=== PATIENT | female | born 1945 | race Caucasian/White ===

== ENCOUNTER 2018-09-16 08:05 | Inpatient (IN) ==
--- NOTE | 2018-09-02 10:11 | History & Physical Report ---
Date of Service September 02, 2018 date of surgery: 09-16-18 Assessment & Plan (1) Tricompartment osteoarthritis of right knee: Further care discussed with [facility] and at this point in time has failed conservative measures and would like to proceed with a right total knee replacement at [facility] on 09-16-18. Plan on discharge will be home with home health physical therapy. DVT prophalaxis with TEDs, SCDs and will also place on aspirin 81 mg p.o. b.i.d. for a month postop. Patient will have follow up appointment in our office two weeks post op for staple/suture removal and re-evaluation. Patient otherwise has no other questions or concerns. History of Present Illness Chief Complaint: right knee pain Primary Care Provider: Chon Haas Ms Huggins is a 72 year old female who complains of right knee pain, presents for pre-op evaluation prior to a right total knee replacement at [facility]. She presents with pain, crepitus and decreased range of motion in her right knee. She states that the symptoms have been chronic and they occur constantly with intermittent worsening. Currently the patient states that the symptoms are moderate-severe. The pain is described as aching, sharp and throbbing. The symptoms are aggravated by ascending stairs, daily activities, walking and repetitive activities. In addition to right knee pain the patient is also exp eriencing crepitus, decreased mobility, joint pain, limping, loss of motion, pain, pain after activity and stiffness. Prior NSAIDs include ibuprofen and Aleve. She has had previous corticosteroid injection in the past. She has had Pt. and ambulates with a cane. She has a previous Left TKA done several years ago. Allergies Allergy/AdvReac Type Severity Reaction Status Date / Time No Known Allergies Allergy Verified 08/31/18 14:30 Home Medications Home Medications Medication Instructions Recorded Confirmed Type Ca-D3-mag sd-dbry-fqr-tricia-bor 1 tab PO QAM 08/31/18 08/31/18 History [Calcium 600-D3 Plus] acetaminophen [Acetaminophen Extra 500 mg PO BID 08/31/18 08/31/18 History Strength] aspirin 650 mg PO QID PRN 08/31/18 08/31/18 History aspirin [Aspirin Low Dose] 81 mg PO QPM 08/31/18 08/31/18 History atenolol 25 mg PO QAM 08/31/18 08/31/18 History atorvastatin 20 mg PO PM 08/31/18 08/31/18 History cholecalciferol (vitamin D3) 2,000 unit PO QAM 08/31/18 08/31/18 History [Vitamin D3] docusate sodium 100 mg PO BID 08/31/18 08/31/18 History famotidine 40 mg PO HS 08/31/18 08/31/18 History gabapentin 300 mg PO QAM 08/31/18 08/31/18 History gabapentin 600 mg PO QPM 08/31/18 08/31/18 History insulin degludec [Tresiba 12 unit SUBCUT HS 08/31/18 08/31/18 History FlexTouch U-100] liraglutide [Victoza 2-Skinny] 1.6 mg SUBCUT HS 08/31/18 08/31/18 History magnesium oxide 400 mg PO QAM 08/31/18 08/31/18 History metformin 1,000 mg PO QDD 08/31/18 08/31/18 History mometasone [Nasonex] 2 spray INTRANASAL DAILY PRN 08/31/18 08/31/18 History fw-yv-nicj-FA-Ca carb-vit K 1 tab PO QAM 08/31/18 08/31/18 History [Women's Multivitamin] adubd-6-chh-poj-rbz-jwxl oil 2 cap PO QAM 08/31/18 08/31/18 History solifenacin [Vesicare] 10 mg PO QAM 08/31/18 08/31/18 History vitamin E 400 unit PO QAM 08/31/18 08/31/18 History Past Med/Surg History Medical History Asthma Using albuterol BID, nebulizer BID, Breo daily Diabetes mellitus, type 2 GERD (gastroesophageal reflux disease) Hiatal hernia History of anemia as a child History of kidney stones Hyperlipidemia Hypertension Morbid obesity Osteoarthritis Seasonal allergies Urinary incontinence Surgical History History of colonoscopy History of total left knee replacement Family History Brother Family history of diabetes mellitus Sister Family history of diabetes mellitus Mother Family history of diabetes mellitus Uncle Family history of diabetes mellitus Uncle Family history of diabetes mellitus Family/Other Family history of diabetes mellitus Social History Preferred Language: Uzbek Communication Ability: Effective Beliefs That Will Affect Care: None Current Living Situation: Family Feels Safe at Home: Yes Smoking Status: Former smoker Do You Dip or Chew Tobacco: No Smoking End Date: 40 YR AGO Second Hand Exposure: Yes (OCCASSIONALLY) Hx Alcohol Use: No Hx Substance Use: No Review of Systems Review of Systems: All systems reviewed & are unremarkable except as noted in HPI & below Constitutional: no fever, no chills and no sweats Respiratory: no cough and no dyspnea Cardiovascular: no chest pain, no dyspnea and no orthopnea Gastrointestinal: no abdominal pain, no nausea and no vomiting Musculoskeletal: as per Subjective / HPI Physical Exam Physical Exam: Ht: 5ft Wt: 92.99 kg BP: 138/78 Pulse: 78 Constitutional: WD/WN, vitals as above no acute distress Respiratory: normal respiratory effort, lungs clear to auscultation no respiratory distress, no labored breathing and does not use accessory muscles Cardiovascular: RRR, no murmur, no edema Gastrointestinal (Abdomen): normal bowel sounds, soft, nontender, no hepatosplenomegaly Musculoskeletal: Right Knee Exam: she ambulates with a limp. Varus alignement. there is no atrophy or warmth, mild effusion, greatest tenderness over the m edial compartment. there is crepitation with motion, madan's negative, Posterior drawer- negative, anterior drawer negative, valgus stress negative, varus stress negative, no extensor lag, there is pain with motion of the knee. Range of motion 0/5/110. No pain with active/passive ROM of ankle. Lower extremity strength normal. Lower extremity neuro-vascular is normal Results & Data Diagnostic Findings Right Knee X-ray from 05/04/18 shows advanced degenerative changes to the right knee, narrowing of the medial compartment and patello-femoral joint, varus alignment. there is patellar spurring noted, osteophyte formation and subchondral sclerosis noted. no acute bony pathology noted. no loose bodies.
--- NOTE | 2018-09-02 14:05 | PAT Medication Instructions ---
Medication Instructions Date of Service September 02, 2018 Home Medications Ca-D3-mag qu-lybh-oto-tricia-bor [Calcium 600-D3 Plus] 1 tab PO QAM acetaminophen [Acetaminophen Extra Strength] 500 mg PO BID aspirin [Aspirin Low Dose] 81 mg PO QPM atenolol 25 mg PO QAM atorvastatin 20 mg PO PM cholecalciferol (vitamin D3) 2,000 unit PO QAM docusate sodium 100 mg PO BID famotidine 40 mg PO HS gabapentin 300 mg PO QAM gabapentin 600 mg PO QPM insulin degludec [Tresiba FlexTouch U-100] 12 unit SUBCUT HS liraglutide [Victoza 2-Skinny] 1.6 mg SUBCUT HS magnesium oxide 400 mg PO QAM metformin 1,000 mg PO QDD mometasone [Nasonex] 2 spray INTRANASAL DAILY PRN zi-ng-karx-FA-Ca carb-vit K [Women's Multivitamin] 1 tab PO QAM aqhqc-3-bcw-has-qne-blel oil 2 cap PO QAM solifenacin [Vesicare] 10 mg PO QAM vitamin E 400 unit PO QAM STOP taking 2 weeks before surgery qnumj-7-uww-fin-wzu-jpzy oil 2 cap PO QAM vitamin E 400 unit PO QAM DO NOT take the morning of surgery Ca-D3-mag td-wzbc-sad-tricia-bor [Calcium 600-D3 Plus] 1 tab PO QAM cholecalciferol (vitamin D3) 2,000 unit PO QAM docusate sodium 100 mg PO BID magnesium oxide 400 mg PO QAM ml-ft-rmzz-FA-Ca carb-vit K [Women's Multivitamin] 1 tab PO QAM solifenacin [Vesicare] 10 mg PO QAM Take morning of surgery With a small sip of water, OTHERWISE NOTHING TO EAT OR DRINK AFTER MIDNIGHT: albuterol inhaler QID PRN (if needed, and bring with you to the hospital) acetaminophen [Acetaminophen Extra Strength] 500 mg PO BID atenolol 25 mg PO QAM Breo Inhaler 1 inh QAM gabapentin 300 mg PO QAM mometasone [Nasonex] 2 spray INTRANASAL DAILY PRN (if needed) Take evening before surgery acetaminophen [Acetaminophen Extra Strength] 500 mg PO BID aspirin [Aspirin Low Dose] 81 mg PO QPM atorvastatin 20 mg PO PM docusate sodium 100 mg PO BID famotidine 40 mg PO HS gabapentin 600 mg PO QPM insulin degludec [Tresiba FlexTouch U-100] 12 unit SUBCUT HS liraglutide [Victoza 2-Skinny] 1.6 mg SUBCUT HS metformin 1,000 mg PO QDD mometasone [Nasonex] 2 spray INTRANASAL DAILY PRN (if needed) Other Notes If you have any questions please call us at [phone] or [phone] or [phone] or [phone]
--- NOTE | 2018-09-02 14:24 | Anesthesiology Consultation ---
Date of Service September 02, 2018 Assessment & Plan (1) Encounter for pre-operative examination: PCP CLEARANCE 09/09 ([facility] [place]) -- "patient is medically cleared for scheduled right TKA with Dr. Inman on 09/16/2018 at [facility]. Her multiple comorbid medical issues are well controlled at this time." CHECK BSG AM DOS Chart Review Chart Review: Acceptable Risk for Surgery and Patient seen in Pre Admission Testing Teaching & Discussion Instructed NPO after midnight before surgery, except medications with 15 cc of water. Medication instructions provided according to the PAT guidelines. History Surgery Operation Date: 05/27/18 08:20 Proposed Procedures p Right Total Knee Arthroplasty - Jayy Inman DO Operation Date: 09/16/18 12:15 Proposed Procedures p Right Total Knee Arthroplasty - Jayy Inman DO Height/Weight Height: 5 ft Weight: 96.2 kg Allergies Allergy/AdvReac Type Severity Reaction Status Date / Time No Known Allergies Allergy Verified 08/31/18 14:30 Medications Home Medications Medication Instructions Recorded Confirmed Last Taken Ca-D3-mag xq-gubi-vys-tricia-bor 1 tab PO QAM 08/31/18 08/31/18 Unknown [Calcium 600-D3 Plus] acetaminophen [Acetaminophen Extra 500 mg PO BID 08/31/18 08/31/18 Unknown Strength] aspirin [Aspirin Low Dose] 81 mg PO QPM 08/31/18 08/31/18 Unknown atenolol 25 mg PO QAM 08/31/18 08/31/18 Unknown atorvastatin 20 mg PO PM 08/31/18 08/31/18 Unknown cholecalciferol (vitamin D3) 2,000 unit PO QAM 08/31/18 08/31/18 Unknown [Vitamin D3] docusate sodium 100 mg PO BID 08/31/18 08/31/18 Unknown famotidine 40 mg PO HS 08/31/18 08/31/18 Unknown gabapentin 300 mg PO QAM 08/31/18 08/31/18 Unknown gabapentin 600 mg PO QPM 08/31/18 08/31/18 Unknown insulin degludec [Tresiba 12 unit SUBCUT HS 08/31/18 08/31/18 Unknown FlexTouch U-100] liraglutide [Victoza 2-Skinny] 1.6 mg SUBCUT HS 08/31/18 08/31/18 Unknown magnesium oxide 400 mg PO QAM 08/31/18 08/31/18 Unknown metformin 1,000 mg PO QDD 08/31/18 08/31/18 Unknown mometasone [Nasonex] 2 spray INTRANASAL DAILY PRN 08/31/18 08/31/18 Unknown up-vu-soqr-FA-Ca carb-vit K 1 tab PO QAM 08/31/18 08/31/18 Unknown [Women's Multivitamin] kauil-0-ihj-lvq-iqy-vakm oil 2 cap PO QAM 08/31/18 08/31/18 Unknown solifenacin [Vesicare] 10 mg PO QAM 08/31/18 08/31/18 Unknown vitamin E 400 unit PO QAM 08/31/18 08/31/18 Unknown albuterol sulfate 2 puff INHALATION Q6H PRN 09/03/18 09/03/18 Unknown albuterol sulfate 2.5 mg INHALATION QID PRN 09/03/18 09/03/18 Unknown fluticasone furoate-vilanterol 1 inh INHALATION DAILY 09/03/18 09/03/18 Unknown [Breo Ellipta] Past Medical History Medical History Asthma Using albuterol BID, nebulizer BID, Breo daily Diabetes mellitus, type 2 GERD (gastroesophageal reflux disease) Hiatal hernia History of anemia as a child History of kidney stones Hyperlipidemia Hypertension Morbid obesity Osteoarthritis Seasonal allergies Urinary incontinence Exercise / Class Metabolic Activity II 4-5 Yardwork/Stairs/Walk up hill (Does full flight of stairs daily without CP or SOB unless hurrying) Past Family History Family History Brother Family history of diabetes mellitus Sister Family history of diabetes mellitus Mother Family history of diabetes mellitus Uncle Family history of diabetes mellitus Uncle Family history of diabetes mellitus Family/Other Family history of diabetes mellitus Past Surgical History Surgical History History of colonoscopy History of total left knee replacement Past Anesthesia History No Family Hx of Anesthesia Complications and Other Pt reports "low BP" with anesthesia. Denies reintubation or ICU transfer. H/O awareness with previous L TKA. History of PONV No Hx of PONV and Hx of Motion Sickness Social History Smoking Status: Former smoker Do You Dip or Chew Tobacco: No Smoking End Date: 40 YR AGO Hx Alcohol Use: No Hx Substance Use: No Review of Systems Pt denies any recent chest pain, shortness of breath above baseline, palpitations, cough, fever or URI. Physical Exam Vital Signs BP: 93/63 (denies hypotensive symptoms, reports BPs have been low since PCP made adjustments to DMD meds. To see PCP 09/09) P: 78bpm SPO2: 92% * (pt asymptomatic) T: 97.7 F R: 18 Constitutional + obese ENMT Mouth: + dental restorations (upper plate) and + edentulous Thyromental Distance: > or= 3.5 Finger Breadths (3.5) Mallampati Class: I Neck normal visual inspection; neck extension not limited (very mild pain with full extension) Respiratory normal respiratory effort Auscultation: lungs clear to auscultation bilaterally and + diminished lung sounds (B/L) Cardiovascular Rate/Rhythm: regular rate and regular rhythm Heart Sounds: no murmur Vessels: no carotid bruit Extremities: + edema (trace B/L) Testing Laboratory Results 09/02/18 14:40 09/02/18 14:40 PT 10.9 Seconds (9.0-12.0) 09/02/18 14:40 INR 1.1 (0.9-1.1) 09/02/18 14:40 APTT 25.6 Seconds (21.0-31.0) 09/02/18 14:40 Hemoglobin A1c 6.6 % (4.5-5.6) H 09/02/18 14:40 Urine Color Yellow 09/02/18 14:40 Urine Appearance Cloudy (Clear) A 09/02/18 14:40 Urine pH 5.0 (4.5-7.5) 09/02/18 14:40 Ur Specific Gilbert 1.024 (1.000-1.030) 09/02/18 14:40 Urine Protein Negative (Negative) 09/02/18 14:40 Urine Glucose (UA) Negative (Negative) 09/02/18 14:40 Urine Ketones Negative (Negative) 09/02/18 14:40 Urine Nitrite Negative (Negative) 09/02/18 14:40 Ur Leukocyte Esterase Trace (Negative) H 09/02/18 14:40 Urine WBC (Auto) 1-5 /hpf (0-5) 09/02/18 14:40 Urine RBC (Auto) 0-4 /hpf (0-4) 09/02/18 14:40 U Hyaline Cast (Auto) 1-5 /lpf (0-5) 09/02/18 14:40 U Epithel Cells (Auto) >30 /lpf (0-5) H 09/02/18 14:40 Urine Bacteria (Auto) 1+ (Negative) H 09/02/18 14:40 Blood Type O Positive 09/02/18 14:40 Antibody Screen NEGATIVE 09/02/18 14:40 09/02/18 14:40 Urine Culture - Final Urine,Clean Catch More than three types of organisms present, all high counts mixed probable skin law - No further identifications or sensitivities to follow. Electrocardiogram Date: 09/02/18 Findings: + KATHYR @ (51)
[2018-09-02 16:09] LABS: Basophils # (auto) 0.12 K/uL (0-0.2); Basophils % (auto) 1.4 %; Hematocrit (blood only) 39.7 % (37-47); Hemoglobin 13.5 g/dL (12.0-16.0); Immature Granulocytes # (auto) 0.01 K/uL (0.00-0.02); Immature Granulocytes % (auto) 0.1 %; Lymphocytes # (auto) 2.91 K/uL (1.2-3.4); Lymphocytes % (auto) 34.6 %; Mean Corpuscular Volume 96.1 fL (80-100); Mean Platelet Volume 11.1 fL (7.4-10.4); Monocytes # (auto) 0.51 K/uL (0.11-0.59); Monocytes % (auto) 6.1 %; Neutrophils # (auto) 4.35 K/uL (1.4-6.5); Neutrophils % (auto) 51.8 %; Platelet Count 274 K/uL (130-400); RDW Coefficient of Variation 13.3 % (11.5-14.5); RDW Standard Deviation 46.4 fL (36.4-46.3); Red Blood Count 4.13 M/uL (4.2-5.4)
[2018-09-02 16:16] LABS: Appearance Urine Cloudy (Clear); Bacteria Urine Automated 1+ (Negative); Bilirubin Urine Negative (Negative); Blood Urine Negative (Negative); Color Urine Yellow; Epithelial Cell Urine Auto >30 /lpf (0-5); Glucose Urine UA Negative (Negative); Ketones Urine Negative (Negative); Leukocyte Esterase Urine Trace (Negative); Nitrite Urine Negative (Negative); Protein Urine Negative (Negative); RBC Urine Automated 0-4 /hpf (0-4); Specific Gravity Urine 1.024 (1.000-1.030); Urobilinogen Urine Negative (Negative)
[2018-09-02 16:18] LABS: Albumin Level 3.6 gm/dl (3.4-5.0); BUN Creatinine Ratio 16.2 (10-20); Calcium 9.2 mg/dl (8.5-10.1); Creatinine Clr Calc Pharmacy 50.3 ml/min; Est GFR (African American) 60.2; Potassium 4.3 mmol/L (3.5-5.1)
[2018-09-02 16:20] LABS: INR 1.1 (0.9-1.1); Partial Thromboplastin Ratio 0.9; Partial Thromboplastin Time 25.6 Seconds (21.0-31.0); Prothrombin Time 10.9 Seconds (9.0-12.0)
[2018-09-03 09:59] LABS: Estimated Average Glucose 143 mg/dl; Hemoglobin A1C 6.6 % (4.5-5.6)
[~2018-09-16 08:05] MED LIST: ACETAMINOPHEN 500 MG TAB PO SCH; BUPIVACAINE 0.5 % 5 MG/1 ML PF 10ML VIAL ONE; CEFAZOLIN 2000MG 2,000 MG/15 ML SYR IV SCH; CeleBREX 200 MG CAP PO SCH; EPINEPHrine INJ 1 MG/ML AMP ONE; FAMOTIDINE 20 MG TAB PO SCH; GABAPENTIN 300 MG CAP PO SCH; LR 500ML BOLUS, THEN 15ML/HR IV SCH; METOCLOPRAMIDE HCL 10 MG TABLET PO SCH; ROPIVACAINE 0.5% 5 MG/ML 30 ML VIAL ONE; ROPIVACAINE 0.5% HCL/PF 150 MG, BUPIVACAINE 0.5% MPF 30 ML, EPINEPHrine 30MG/30ML (OR U... INSTIL SCH; TRANEXAMIC ACID 1,000 MG **IV Intra-op IV SCH; TRANEXAMIC ACID 1,000 MG **IV Pre-op IV SCH; dexAMETHasone 4 MG TAB PO SCH
[2018-09-16] MEDS ORDERED: fentaNYL citrate 100 MCG/2 ML VIAL ONE (09:32)
[2018-09-16] MEDS ORDERED: LIDOCAINE HCL 2% 2 ML VIAL/AMP(20MG/ML) INFIL ONE (09:32)
[2018-09-16] MEDS ORDERED: PROPOFOL IV EMULSION 10 MG/ML 20 ML VIAL IV ONE ×2 (09:32→11:15)
[2018-09-16] MEDS ORDERED: MIDAZOLAM HCL 1 MG/ML 2ML VIAL ONE (09:32)
[2018-09-16] MEDS ORDERED: ORTHO JOINT ANESTHETIC ONE (10:11)
[2018-09-16] MEDS ORDERED: BACITRACIN INJ 50,000 UNIT VIAL ONE (10:11)
[2018-09-16] MEDS ORDERED: LABETALOL HCL IV 5 MG/ML 20ML IV PRN (10:21)
[2018-09-16] MEDS ORDERED: ONDANSETRON INJ 2 MG/ML 2 ML VIAL IV PRN ×2 (10:21→13:42)
[2018-09-16] MEDS ORDERED: ATROPINE SULFATE 0.1 MG/ML 10ML SYR IV PRN (10:21)
[2018-09-16] MEDS ORDERED: HYDROmorphone INJ 1 MG/ML SYRINGE IV PRN (10:21)
[2018-09-16] MEDS ORDERED: ePHEDrine sulfate 50 MG/ML AMP IV PRN (10:21)
[2018-09-16] MEDS ORDERED: PHENYLEPHRINE 100MCG/ML 5ML SYR IV PRN (10:21)
[2018-09-16] MEDS ORDERED: fentaNYL citrate 100 MCG/2 ML VIAL IV PRN (10:21)
--- NOTE | 2018-09-16 10:27 | History & Physical Bridge Note ---
Date of Service September 16, 2018 History & Physical Bridge Note I have examined the patient, reviewed the History & Physical and in the interval since the performance of the History & Physical I have noted the following changes of clinical significance: no changes noted
[2018-09-16] MEDS ORDERED: PHENYLEPHRINE 100MCG/ML 5ML SYR ONE (11:15)
--- NOTE | 2018-09-16 11:38 | Operative Report ---
Post Operative Report Pre & Post Diagnosis Operation Date: 05/27/18 08:20 <No data on this case meets the specified criteria> Operation Date: 09/16/18 11:00 Pre-Op Diagnosis: Right knee osteoarthritis Post-Op Diagnosis: Right knee osteoarthritis Procedure Operation Date: 05/27/18 08:20 <No data on this case meets the specified criteria> Operation Date: 09/16/18 11:00 Actual Procedures p Right Total Knee Arthroplasty(Right) utilizing [employer] Nephew journey to non- block total knee arthroplasty size 3 femur to tibia 9 polyethylene 29 round patella- Jayy Inman DO Surgeon Jayy Inman DO Wort Extractor Kareem GROSS Estimated Blood Loss 5 Findings Consistent with Post-Op Diagnosis Patient presents with severe end-stage tricompartmental degenerative joint di sease right knee bone to bone changes subchondral eburnated bone with subchondral cystic changes marginal osteophytes varus alignment moderate to large effusion no response to conservative manage Specimens Bone and cartilage Drains Medium bore Hemovac Complications none Disposition Accompanied Patient To Recovery: No Disposition: Recovery Room Indications Patient presents with ongoing planes of pain about the right knee no response to conservative management with physical therapy anti-inflammatories relative rest activity modification cortical steroid injections Visco supplementation patient is failed all attempts at conservative management the above intraoperative findings were noted times surgery. Description of Procedure After proper prepping and draping of the Right lower extremity anterior midline incision was made over the region of the extensor extensor mechanism after meticulous hemostasis was obtained and maintained in subcutaneous tissues a medial parapatellar incision was made The patella was subluxed lateralward the medial lateral gutter were cleaned from any hypertrophic synovitis and scar tissue of the distal femoral block was placed and the distal femoral osteotomy cut was made subsequently the chamfers anterior and posterior osteotomy cuts were made utilizing the 4-in-1 block the tibia was subsequently subluxed anteriorward medial and ateral meniscal remnants were excised in their entirety remnants of the anterior and posterior cruciate ligaments were excised in their entirety excellent exposure of the proximal tibia was obtained the tibial osteotomy guide was placed on the proximal tibial osteotomy cut was made once again the knee was irrigated with copious amounts of sterile saline solution the patella was subsequently everted lateralward thickened scar tissue around the patella was removed the patella was subsequently cut utilizing a freehand technique and was drilled prepared for final preparation and placement of patella socially flexion-extension gaps were checked and the equal and symmetric trials were placed to the appropriate femoral and tibial trials with poly-spacer being placed for equal flexion and extension gaps and full range of motion including extension to 0 and flexion to 140 the trial components after having been taken to recovery range of motion was subsequently removed meticulous hemostasis was obtained and maintained subsequently a knee block injection of joint cocktail including ropivacaine 0.5% 150 mg. Bupivacaine 0.5% epinephrine 1-200,030 mL's toradol 30 mg dexamethasone 4 mg ketamine 10 mg clonidine 100 micrograms normal saline solution 30 mg was infiltrated into the soft tissues of the posterior knee medial lateral gutters and periosteal synovium special attention was paid to protect neurovascular structures at all times subsequently trial components having been removed the knee was irrigated with sterile saline solution. debris was removed the proximal tibia was subsequently prepared and was made ready for the placement of the tibial component tibial component was also cemented and tamped into position the femoral component was subsequently placed and cemented in the position the patellar component was subsequently cemented in position because hemostasis once again obtained and maintained wound having been thoroughly irrigated with debridement and debridement lavage was performed as well as a medial parapatellar incision closed with #1 Vicryl in interrupted fashion subcutaneous was closed with #2 Vicryl skin was closed with skin clips. PA-C was necessary for prepping and drapping as well as wound closure of deep fascia Sub cutaneous tissue and skin and was necessary for the case. A sterile compressive dressing was placed patient was taken to recovery in stable condition of report dictated by Storm I attest to the content of the Intraoperative Record and any orders documented therein. Any exceptions are noted below. I attest to the content of the Intraoperative Record and any orders documented therein. Any exceptions are noted below.
--- NOTE | 2018-09-16 12:55 | XRay Report ---
XR knee RT 2V routine CLINICAL HISTORY: 72 years-old Female presenting with Surgical Post Op. TECHNIQUE: Frontal and lateral views of the right knee were obtained. COMPARISON: None. FINDINGS: Post surgical changes of total right knee arthroplasty with patellar resurfacing. No periprosthetic f racture or lucency. No malalignment. Surgical drain in place. Expected intra-articular and soft tissu e emphysema. IMPRESSION: Expected post surgical appearance status post total right knee arthroplasty with patellar resurfacing . Electronically signed by: Jarod Toscano M.D. 09/16/2018 12:54 PM
--- NOTE | 2018-09-16 13:13 | Anesthesiology Progress Note ---
Date of Service September 16, 2018 Anesthesia Post Procedure Vital Signs Vital Signs: Temp Pulse Pulse Resp BP Pulse Ox 09/16/18 13:00 37.1 C 78 15 104/62 94 09/16/18 12:50 81 12 109/65 92 09/16/18 12:40 81 12 106/63 93 09/16/18 12:30 82 12 124/65 96 09/16/18 12:21 36.8 C 68 20 153/75 H 97 09/16/18 08:48 74 18 146/88 H 97 09/16/18 08:40 36.8 C 75 18 131/110 H 98 Pain Intensity Right Knee: Pain Intensity: 0 Transfer of Care Handoff Completed per policy Notes Mental Status: alert / awake / arousable Patient Amnestic to Procedure: Yes Nausea / Vomiting: adequately controlled Pain: adequately controlled Airway Patency, RR, SpO2: stable & adequate BP & HR: stable & adequate Hydration State: stable & adequate Neuraxial Anesthesia: was administered and sensory block is resolving Anesthetic Complications: no major complications apparent and Pt Satisfied with anesthetic care
[2018-09-16] MEDS ORDERED: ALBUTEROL HFA 8 GM INHALER INH PRN (13:42)
[2018-09-16] MEDS ORDERED: ALBUTEROL 0.083% NEBU SOLN 3 ML VIAL INH PRN (13:42)
[2018-09-16] MEDS ORDERED: MAGNESIUM HYDROXIDE SUSP 30 ML UDC PO PRN (13:42)
[2018-09-16] MEDS ORDERED: NALOXONE HCL 0.4 MG/1 ML VIAL/CARP IV PRN (13:42)
[2018-09-16] MEDS ORDERED: BISACODYL 10 MG SUPP PR PRN (13:42)
[2018-09-16] MEDS ORDERED: HYDROmorphone INJ 0.5 MG/0.5 ML SYR IV PRN (13:42)
[2018-09-16] MEDS ORDERED: ALUMINUM/MAGNESIUM SUSP 30 ML UDC PO PRN (13:42)
[2018-09-16] MEDS ORDERED: PHARMACY GLYCEMIC MGMT CONSULT PRN (13:58)
[2018-09-16] MEDS ORDERED: GLUCAGON FOR INJ 1 MG VIAL IM PRN (14:00)
[2018-09-16] MEDS ORDERED: GLUCOSE 10 TABS/TUBE PO PRN (14:00)
[2018-09-16] MEDS ORDERED: CARBOHYDRATES FOR HYPOGLYCEMIA PO PRN (14:00)
[2018-09-16] MEDS ORDERED: GLUCOSE 40% GEL 15 GM TUBE PO PRN (14:00)
[2018-09-16] MEDS ORDERED: DEXTROSE 50% 50 ML SYRINGE IV PRN (14:00)
[2018-09-16] MEDS ORDERED: INSULIN GLARGINE SOLOSTAR 100 UNITS/ML 3 ML PEN SC ONE ×2 (14:15→21:00)
[2018-09-16] MEDS: ACETAMINOPHEN 500 MG TAB PO SCH ×2 (14:39→20:57)
[2018-09-16] MEDS: INSULIN ASPART 100 UNITS/ML 3 ML PEN SC SCH ×3 (14:40→20:58)
--- NOTE | 2018-09-16 15:13 | Pharmacy Report ---
Glycemic Control Consultation - Date of Service September 16, 2018 - Scope Scope: Glycemic Pharmacist consulted by Kareem Palmer on 09/16/18 for glycemic control and to write orders per [facility] inpatient glycemic control protocol - Objective Weight: 94.3 kg Accuchecks BSG (last 24hrs): 09/16/18 09/16/18 08:44 12:26 POC Glucose 95 161 H HbA1c: Hemoglobin A1c 6.6 % (4.5-5.6) H 09/02/18 14:40 - Recent Pertinent Medications Outpatient Anti-diabetic Regimen: * Victoza 1.6 mg SQ nightly; Tresiba 12 units nightly; metformin 1 gm PO daily * A1c = 6.6 % 09/02/18 Risk Factors for Insulin Resistance: * Steroids: dexamethasone 8 mg po preoperatively plus 4 mg topically * Recent Surgery: POD 0 for knee surgery * Diet: T2DM - Assessment & Plan Assessment & Plan: ASSESSMENT: * Ms Huggins is a 72 y/o F with a PMH of well controlled T2DM on two injectables and an oral agent who presents for knee surgery. Patient received PO steroids and topical steroids. * Fasting blood sugar was 95 mg/dL while lunch blood sugar was 161 mg/dL. Patient takes Tresiba at home. Plan to be comfortable with patient receiving between 25 and 30 units of basal today ... give 20 units now and leave additional dose in the evening since patient takes Tresiba in the evening at home. Weight-based stress of 2 is 32 units --- so somewhere around there is reasonable for oral steroids. * Will be aggressive with Novolog since steroids affect post prandial blood sugars the most. * ADA & AACE recommend a goal blood sugar range 140-180 mg/dl for the majority of critically ill & non-critically ill patients. However, more stringent targets may be selected in individual cases. Will utilize more stringent goal of 110-140mg/dl based on patient age & comorbidities. Additionally, tighter glycemic control is warranted to facilitate wound/infection healing. * Pt is maintained on oral antidiabetic agents as an outpatient * Oral agents are not recommended for inpatient use d/t drug interactions, changing PO intake, and difficulty titrating for acute hyper/hypoglycemia. ADA recommends re-initiating outpatient oral agents 1-2 days prior to discharge if/when appropriate if they were held on admission. * Will hold oral agents for admission and utilize SQ basal bolus insulin regimen which is the recommended regimen for inpatient glycemic control. * Will initiate weight based insulin dosing for insulin delfino patient and titrate based on BSG trends. PLAN FOR INPATIENT GLYCEMIC CONTROL: * Holding outpatient oral diabetes medications * Basal insulin * Lantus 20 units SQ x 1 then 0-10 units tonight based upon blood sugar * Bolus insulin * NovoLog per scale ACHS or Q6hrs while NPO * Goal Range: Low 110 mg/dL - High 140 mg/dL * Correction Factor: 15 mg/dL/unit * Nutritional / Prandial insulin per carb ratio of 1 unit per 6 grams CHO consumed * Please note that the plan above was derived based on current level of insulin resistance and hospital stress. These recommendations are appropriate for inpatient admission only. Plan of care upon discharge will need to be reassessed to avoid potential outpatient hypo/hyperglycemia. Thank you.
--- NOTE | 2018-09-16 16:08 | Consultation ---
Date of Consultation September 16, 2018 Assessment & Plan (1) Tricompartment osteoarthritis of right knee: s/p right TKA pain is well controlled DVT prophylaxis per ortho PT/OT discharge planning patient breathing well off of oxygen encourage oral fluids, mobility, will watch for bowel function check routine CBC and BMP in the morning (2) DM type 2 (diabetes mellitus, type 2): pharmacy consulted for glycemic management holding Metformin, Victoza and Triseba using Novolog SS diabetic diet monitor for hypoglycemia (3) HTN (hypertension): BP stable on Atenolol (4) Dyslipidemia: Lipitor (5) OAB (overactive bladder): Vesicare (6) Neuropathy: Gabapentin History of Present Illness Requesting Physician: Dr. Inman Reason for Consultation: Medical management Attending Physician: Jayy Inman DO History of Present Illness 72 yo female with history of DM type II with neuropathy, CKD stage III, HTN, dyslipidemia who presents for elective right TKA. She has a history of osteoarthritis, had left TKA 16 years ago. She had been delaying right TKA for some time because her sugars were poorly controlled. She started to see Endocrinology and she had success in lowering her A1c to 6.1 from 8.2 using Tresiba, Victoza and Metformin. She was seen by her PCP Dr. Haas in [place] and cleared medically for the surgery. The surgery went well, no immediate complications, minimal blood loss. No chest pain or dyspnea after surgery. She was able to eat without any nausea or vomiting. Prior to surgery she was in her usual state of health. Pre op labs showed Cr of 1.0. Her EKG showed NSR. Allergies Allergy/AdvReac Type Severity Reaction Status Date / Time No Known Allergies Allergy Verified 09/16/18 08:41 Home Medications Home Medications Medication Instructions Recorded Confirmed Type Ca-D3-mag hc-zcvq-aam-tricia-bor 1 tab PO QAM 08/31/18 09/16/18 History [Calcium 600-D3 Plus] acetaminophen [Acetaminophen Extra 500 mg PO BID 08/31/18 09/16/18 History Strength] aspirin [Aspirin Low Dose] 81 mg PO QPM 08/31/18 09/16/18 History atenolol 25 mg PO QAM 08/31/18 09/16/18 History atorvastatin 20 mg PO PM 08/31/18 09/16/18 History cholecalciferol (vitamin D3) 2,000 unit PO QAM 08/31/18 09/16/18 History [Vitamin D3] docusate sodium 100 mg PO BID 08/31/18 09/16/18 History famotidine 40 mg PO HS 08/31/18 09/16/18 History gabapentin 300 mg PO QAM 08/31/18 09/16/18 History gabapentin 600 mg PO QPM 08/31/18 09/16/18 History insulin degludec [Tresiba 12 unit SUBCUT HS 08/31/18 09/16/18 History FlexTouch U-100] liraglutide [Victoza 2-Skinny] 1.6 mg SUBCUT HS 08/31/18 09/16/18 History magnesium oxide 400 mg PO QAM 08/31/18 09/16/18 History metformin 1,000 mg PO DAILY 08/31/18 09/16/18 History mometasone [Nasonex] 2 spray INTRANASAL DAILY PRN 08/31/18 09/16/18 History ua-ic-hduv-FA-Ca carb-vit K 1 tab PO QAM 08/31/18 09/16/18 History [Women's Multivitamin] thgou-2-eit-rkn-xre-oiim oil 2 cap PO QAM 08/31/18 09/16/18 History solifenacin [Vesicare] 10 mg PO QAM 08/31/18 09/16/18 History vitamin E 400 unit PO QAM 08/31/18 09/16/18 History albuterol sulfate 2 puff INHALATION Q6H PRN 09/03/18 09/16/18 History albuterol sulfate 2.5 mg INHALATION QID PRN 09/03/18 09/16/18 History fluticasone furoate-vilanterol 1 inh INHALATION DAILY 09/03/18 09/16/18 History [Breo Ellipta] Patient History Medical History Asthma Using albuterol BID, nebulizer BID, Breo daily Diabetes mellitus, type 2 GERD (gastroesophageal reflux disease) Hiatal hernia History of anemia as a child History of kidney stones Hyperlipidemia Hypertension Morbid obesity Osteoarthritis Seasonal allergies Urinary incontinence Surgical History History of colonoscopy History of total left knee replacement Family History Brother Family history of diabetes mellitus Sister Family history of diabetes mellitus Mother Family history of diabetes mellitus Uncle Family history of diabetes mellitus Uncle Family history of diabetes mellitus Family/Other Family history of diabetes mellitus Social History Preferred Language: [place] Communication Ability: Effective Beliefs That Will Affect Care: None Current Living Situation: Family Feels Safe at Home: Yes Smoking Status: Former smoker Do You Dip or Chew Tobacco: No ; Smoking End Date: 40 YR AGO ; Second Hand Exposure: Yes (OCCASSIONALLY) ; Hx Alcohol Use: No Hx Substance Use: No Review of Systems Review of Systems: All systems reviewed & are unremarkable except as noted in HPI & below Constitutional: no fever Respiratory: no cough and no dyspnea Cardiovascular: no chest pain, no palpitations, no syncope and no edema Gastrointestinal: no abdominal pain, no nausea, no vomiting, no constipation and no diarrhea/loose stools Musculoskeletal: + joint pain (right knee) Physical Exam Constitutional: WD/WN, vitals as above Eyes: PERRL, conjunctivae normal, anicteric sclerae ENMT: external ear and nose normal, oropharynx normal Neck: trachea midline, no thyromegaly Respiratory: normal respiratory effort, lungs clear to auscultation Cardiovascular: RRR, no murmur, no edema Gastrointestinal (Abdomen): normal bowel sounds, soft, nontender, no hepatosplenomegaly Musculoskeletal: Head/Neck/Chest: normocephalic and head atraumatic Extremities: + limited ROM of extremities (right knee, pain and swelling, xochitl wrap) and strength 5/5 throughout Skin: no rashes, warm and dry Neurologic: patellar DTR's 2+ bilat, sensation intact and PERRL, EOMI, accommodation nl, no face palsy, no dysarthria Psychiatric: A+Ox3, euthymic affect Lymphatic: no cervical or axillary lymphadenopathy Results & Data Vital Signs (Past 12 Hours) Vital Signs Temp Pulse Pulse Resp BP Pulse Ox 09/16/18 15:29 36.3 C L 82 17 109/68 92 09/16/18 14:36 36.5 C 78 16 100/63 94 09/16/18 13:59 37 C 74 15 99/65 L 95 09/16/18 13:30 36.5 C 81 16 114/59 L 94 09/16/18 13:15 75 14 105/63 94 09/16/18 13:00 37.1 C 78 15 104/62 94 09/16/18 12:50 81 12 109/65 92 09/16/18 12:40 81 12 106/63 93 09/16/18 12:30 82 12 124/65 96 09/16/18 12:21 36.8 C 68 20 153/75 H 97 09/16/18 08:48 74 18 146/88 H 97 09/16/18 08:40 36.8 C 75 18 131/110 H 98 Laboratory Results Laboratory Results - last 24 hr 09/16/18 09/16/18 08:44 12:26 POC Glucose 95 161 H Medications Administered Current Inpatient Medications Acetaminophen (Tylenol) 1,000 mg PO Q8 KEMAL Stop: 10/16/18 13:59 Last Admin: 09/16/18 14:39 Dose: 1,000 mg Documented by: Al Hydrox/Mg Hydrox/Simethicone (Maalox) 15 ml PO Q4H PRN PRN Reason: Heartburn Stop: 10/16/18 13:41 Albuterol (Ventolin Hfa) 2 puffs INH Q6H PRN PRN Reason: Wheezing Stop: 10/16/18 13:41 Albuterol (Ventolin 0.083% 2.5mg/3ml) 2.5 mg INH QIDR PRN PRN Reason: Wheezing Stop: 10/16/18 13:41 Aspirin (Ecotrin Ectab) 81 mg PO BID KEMAL Stop: 10/16/18 20:59 Atenolol (Tenormin) 25 mg PO QAM KEMAL Stop: 10/17/18 08:59 Atorvastatin Calcium (Lipitor) 20 mg PO PM KEMAL Stop: 10/16/18 20:59 Bisacodyl (Dulcolax) 10 mg SC DAILY PRN PRN Reason: Constipation Stop: 10/16/18 13:41 Dextrose (Dextrose 50%) 25 - 50 ml IV UD PRN; Protocol PRN Reason: Hypoglycemia Protocol Stop: 10/16/18 13:59 Docusate Sodium (Colace) 100 mg PO BID KEMAL Stop: 10/16/18 20:59 Famotidine (Pepcid) 40 mg PO HS KEMAL Stop: 10/16/18 20:59 Gabapentin (Neurontin) 300 mg PO QAM KEMAL Stop: 10/17/18 08:59 Gabapentin (Neurontin) 600 mg PO QPM KEMAL Stop: 10/16/18 20:59 Glucagon (Glucagen) 1 mg IM UD PRN; Protocol PRN Reason: Hypoglycemia Protocol Stop: 10/16/18 13:59 Glucose (Glucose 40%) 15 - 30 gm PO UD PRN; Protocol PRN Reason: Hypoglycemia Protocol Stop: 10/16/18 13:59 Glucose (Dex4 Glucose) 4 - 8 tabs PO UD PRN; Protocol PRN Reason: Hypoglycemia Protocol Stop: 10/16/18 13:59 Hydromorphone HCl (Dilaudid) 0.5 mg IV Q4H PRN PRN Reason: Pain Stop: 09/30/18 13:41 Sodium Chloride (Nss 1000ml) 1,000 mls @ 100 mls/hr IV .Q10H KEMAL Stop: 09/17/18 14:04 Cefazolin Sodium (Ancef 2000mg) 2,000 mg in 15 mls @ 3.75 mls/min IV Q8H KEMAL; Protocol Stop: 09/17/18 03:03 Insulin Aspart (Novolog Flexpen) 0 units SC ACHS KEMAL Stop: 10/16/18 13:59 Last Admin: 09/16/18 14:40 Dose: 2 units Documented by: Insulin Aspart (Novolog Flexpen) 0 units SC 0200 KEMAL Stop: 09/17/18 02:01 Insulin Glargine (Lantus Solostar Pen) 0 units SC HS ONE; Protocol Stop: 09/16/18 21:01 Magnesium Hydroxide (Milk Of Magnesia) 30 ml PO Q6H PRN PRN Reason: Constipation Stop: 10/16/18 13:41 Miscellaneous (Order Awaiting Action) 1 ea N/A QS KEMAL Stop: 10/16/18 15:59 Miscellaneous (Order Awaiting Action) 1 ea N/A QS KEMAL Stop: 10/16/18 15:59 Miscellaneous (Order Awaiting Action) 1 ea N/A QS KEMAL Stop: 10/16/18 15:59 Miscellaneous (Carbohydrates For Hypoglycemia) 15 - 30 gm PO UD PRN PRN Reason: Hypoglycemia Treatment Stop: 10/16/18 13:59 Miscellaneous Information (Consult Glycemic Management Pharmacy) 1 ea N/A UD PRN PRN Reason: Consult Stop: 10/16/18 13:57 [facility]ivit[facility] ([facility]amin Tab) [facility] [place]: 10/17/18 08:59 Naloxone HCl (Narcan) 0.1 mg IV Q5M PRN PRN Reason: Oversedation/Resp Depression Stop: 10/16/18 13:41 Ondansetron HCl (Zofran) 4 mg IV Q6H PRN PRN Reason: Nausea And Vomiting Stop: 10/16/18 13:41 Oxycodone HCl (Roxicodone Immediate Rel) 5 - 10 mg PO Q4H PRN PRN Reason: Pain Stop: 09/30/18 13:41 Sennosides (Senokot) 17.2 mg PO [facility] Stop: 10/16/18 20:59 Vitamin D (Vitamin D3) 2,000 [facility] [place] [facility] [place]: 10/17/18 08:59 PG Care Time/CCT Total # of Minutes Spent Total Time Spent with Patient: Total time spent is greater than 50% in coordination of care (as documented) at patient's floor/unit and/or counseling patient:
[2018-09-16] MEDS: SODIUM CHLORIDE 0.9% 1000ML 1,000 ML IV SCH (16:32)
[2018-09-16] MEDS: CEFAZOLIN 2000MG 2,000 MG/15 ML SYR IV SCH (18:18)
[2018-09-16] MEDS: GABAPENTIN 600 MG TAB PO SCH (20:56)
[2018-09-16] MEDS: FAMOTIDINE 20 MG TAB PO SCH (20:56)
[2018-09-16] MEDS: ATORVASTATIN 20 MG TAB PO SCH (20:56)
[2018-09-16] MEDS: SENNA 8.6 MG TAB PO SCH (20:57)
[2018-09-16] MEDS: ASPIRIN 81 MG ECTAB PO SCH (20:57)
[2018-09-16] MEDS: DOCUSATE SODIUM 100 MG CAP PO SCH (20:57)
[2018-09-16] MEDS ORDERED: LIRAGLUTIDE 1.6 MG SQ SCH (21:00)
[2018-09-17] MEDS ORDERED: INSULIN ASPART 100 UNITS/ML 3 ML PEN SC SCH (02:00)
[2018-09-17] MEDS: CEFAZOLIN 2000MG 2,000 MG/15 ML SYR IV SCH (02:04)
[2018-09-17] MEDS: SODIUM CHLORIDE 0.9% 1000ML 1,000 ML IV SCH (02:05)
[2018-09-17] MEDS ORDERED: MOMETASONE FUROATE NAE PRN (04:24)
[2018-09-17 05:56] LABS: Hematocrit (blood only) 34.3 % (37-47); Hemoglobin 11.4 g/dL (12.0-16.0); Mean Corpuscular Hgb Conc 33.2 g/dL (32-36); Mean Platelet Volume 10.6 fL (7.4-10.4); Platelet Count 241 K/uL (130-400); RDW Coefficient of Variation 13.1 % (11.5-14.5); RDW Standard Deviation 45.5 fL (36.4-46.3); Red Blood Count 3.61 M/uL (4.2-5.4); White Blood Count 13.36 K/uL (4.8-10.8)
[2018-09-17] MEDS: ACETAMINOPHEN 500 MG TAB PO SCH ×3 (05:58→21:33)
[2018-09-17] MEDS ORDERED: SODIUM CHLORIDE 0.65% NA SOLN 45 ML (OCEAN) ONE (06:01)
[2018-09-17] MEDS ORDERED: SODIUM CHLORIDE 0.65% NA SOLN 45 ML (OCEAN) PRN (06:02)
[2018-09-17 06:32] LABS: BUN Creatinine Ratio 19.6 (10-20); Calcium 8.4 mg/dl (8.5-10.1); Creatinine Clr Calc Pharmacy 34.4 ml/min; Est GFR (African American) 38.9; Est GFR (Non-African American) 33.6; Potassium 4.7 mmol/L (3.5-5.1)
[2018-09-17] MEDS ORDERED: INSULIN GLARGINE SOLOSTAR 100 UNITS/ML 3 ML PEN SC SCH ×2 (09:00→21:00)
--- NOTE | 2018-09-17 09:03 | Orthopedic Progress Note ---
Date of Service September 17, 2018 Assessment & Plan (1) Tricompartment osteoarthritis of right knee: Postop day 1 status post right total knee arthroplasty PT/OT protocols. Weightbearing as tolerated DVT prophylaxis with aspirin twice daily, SCDs, KRANTHI blair. Continue current pain regimen. Patient is planning on outpatient PT upon discharge Subjective Postop day 1 status post right total knee arthroplasty. Patient is currently sitting up at the in the chair at the bedside. She states that she did not sleep very well but otherwise is feeling fine. She does have some pain just above the patella but otherwise her pain is controlled. Denies any shortness of breath or chest pain. She states she had some mild lightheadedness when walking to the bathroom but quickly resolved. No other complaints or concerns at this time. Physical Exam Physical Exam: Dressings are clean, dry, and intact. Calves are soft nontender. She is moving her toes and she does have a noted weakness of dorsiflexion of the foot. Plantarflexion is strong. Hemovac drainage was 150 mL's from the previous shift. Results & Data Vital Signs (Past 12 Hours) Vital Signs Temp Pulse Resp BP Pulse Ox 09/17/18 07:02 36.6 C 74 18 117/72 94 09/17/18 01:59 36.5 C 74 14 117/73 92 09/16/18 23:10 36.6 C 81 14 119/72 93 Laboratory Results Laboratory Results WBC 13.36 K/uL (4.8-10.8) H 09/17/18 05:37 RBC 3.61 M/uL (4.2-5.4) L 09/17/18 05:37 Hgb 11.4 g/dL (12.0-16.0) L 09/17/18 05:37 Hct 34.3 % (37-47) L 09/17/18 05:37 MCV 95.0 fL (80-100) 09/17/18 05:37 MCH 31.6 pg (25-34) 09/17/18 05:37 MCHC 33.2 g/dL (32-36) 09/17/18 05:37 RDW Std Deviation 45.5 fL (36.4-46.3) 09/17/18 05:37 RDW Coeff of David 13.1 % (11.5-14.5) 09/17/18 05:37 Plt Count 241 K/uL (130-400) 09/17/18 05:37 MPV 10.6 fL (7.4-10.4) H 09/17/18 05:37 Immature Gran % (Auto) 0.1 % 09/02/18 14:40 Neut % (Auto) 51.8 % 09/02/18 14:40 Lymph % (Auto) 34.6 % 09/02/18 14:40 [place] % (Auto) 6.1 % 09/02/18 14:40 Eos % (Auto) 6.0 % 09/02/18 14:40 Baso % (Auto) 1.4 % 09/02/18 14:40 Immature Gran # (Auto) 0.01 K/uL (0.00-0.02) 09/02/18 14:40 Neut # (Auto) 4.35 K/uL (1.4-6.5) 09/02/18 14:40 Lymph # (Auto) 2.91 K/uL (1.2-3.4) 09/02/18 14:40 [place] # (Auto) 0.51 K/uL (0.11-0.59) 09/02/18 14:40 Eos # (Auto) 0.50 K/uL (0-0.5) 09/02/18 14:40 Baso # (Auto) 0.12 K/uL (0-0.2) 09/02/18 14:40 PT 10.9 Seconds (9.0-12.0) 09/02/18 14:40 INR 1.1 (0.9-1.1) 09/02/18 14:40 APTT 25.6 Seconds (21.0-31.0) 09/02/18 14:40 PTT Ratio 0.9 09/02/18 14:40 Sodium 139 mmol/L (136-145) 09/17/18 05:37 Potassium 4.7 mmol/L (3.5-5.1) 09/17/18 05:37 Chloride 109 mmol/L (98-107) H 09/17/18 05:37 Carbon Dioxide 22 mmol/L (21-32) 09/17/18 05:37 Anion Gap 8.0 (3-11) 09/17/18 05:37 BUN 30 mg/dl (7-18) H 09/17/18 05:37 Creatinine 1.54 mg/dl (0.6-1.2) H 09/17/18 05:37 Est Cr Clr Drug Dosing 34.4 ml/min 09/17/18 05:37 Est GFR ( Amer) 38.9 09/17/18 05:37 Est GFR (Non-Af Amer) 33.6 09/17/18 05:37 BUN/Creatinine Ratio 19.6 (10-20) 09/17/18 05:37 Glucose 181 mg/dl (70-99) H 09/17/18 05:37 POC Glucose 137 (70-99) H 09/17/18 08:08 Estimat Average Glucose 143 mg/dl 09/02/18 14:40 Hemoglobin A1c 6.6 % (4.5-5.6) H 09/02/18 14:40 Calcium 8.4 mg/dl (8.5-10.1) L 09/17/18 05:37 Albumin 3.6 gm/dl (3.4-5.0) 09/02/18 14:40 Urine Color Yellow 09/02/18 14:40 Urine Appearance Cloudy (Clear) A 09/02/18 14:40 Urine pH 5.0 (4.5-7.5) 09/02/18 14:40 Ur Specific [place] 1.024 (1.000-1.030) 09/02/18 14:40 Urine Protein Negative (Negative) 09/02/18 14:40 Urine Glucose (UA) Negative (Negative) 09/02/18 14:40 Urine Ketones Negative (Negative) 09/02/18 14:40 Urine Blood Negative (Negative) 09/02/18 14:40 Urine Nitrite Negative (Negative) 09/02/18 14:40 Urine Bilirubin Negative (Negative) 09/02/18 14:40 Urine Urobilinogen Negative (Negative) 09/02/18 14:40 Ur Leukocyte Esterase Trace (Negative) H 09/02/18 14:40 Urine WBC (Auto) 1-5 /hpf (0-5) 09/02/18 14:40 Urine RBC (Auto) 0-4 /hpf (0-4) 09/02/18 14:40 U Hyaline Cast (Auto) 1-5 /lpf (0-5) 09/02/18 14:40 U Epithel Cells (Auto) >30 /lpf (0-5) H 09/02/18 14:40 Urine Bacteria (Auto) 1+ (Negative) H 09/02/18 14:40 Hepatitis C Ab Screen Neg (Neg) 09/17/18 05:37 Blood Type O Positive 09/02/18 14:40 Antibody Screen NEGATIVE 09/02/18 14:40
--- NOTE | 2018-09-17 09:29 | Anesthesiology Progress Note ---
Date of Service September 17, 2018 Anesthesia Post Procedure Vital Signs Vital Signs: Temp Pulse Pulse Resp BP Pulse Ox 09/17/18 07:02 36.6 C 74 18 117/72 94 09/17/18 01:59 36.5 C 74 14 117/73 92 09/16/18 23:10 36.6 C 81 14 119/72 93 09/16/18 16:19 36.4 C L 80 18 113/71 91 09/16/18 15:29 36.3 C L 82 17 109/68 92 09/16/18 14:36 36.5 C 78 16 100/63 94 09/16/18 13:59 37 C 74 15 99/65 L 95 09/16/18 13:30 36.5 C 81 16 114/59 L 94 09/16/18 13:15 75 14 105/63 94 09/16/18 13:00 37.1 C 78 15 104/62 94 09/16/18 12:50 81 12 109/65 92 09/16/18 12:40 81 12 106/63 93 09/16/18 12:30 82 12 124/65 96 09/16/18 12:21 36.8 C 68 20 153/75 H 97 Pain Intensity Right Knee: Pain Intensity: 0 Notes Mental Status: alert / awake / arousable and participated in evaluation Patient Amnestic to Procedure: Yes Nausea / Vomiting: adequately controlled Pain: adequately controlled Airway Patency, RR, SpO2: stable & adequate BP & HR: stable & adequate Hydration State: stable & adequate Neuraxial Anesthesia: was administered and sensory block resolved Anesthetic Complications: no major complications apparent and Pt Satisfied with anesthetic care
[2018-09-17] MEDS: MULTIVITAMIN TAB PO SCH (09:39)
[2018-09-17] MEDS: GABAPENTIN 300 MG CAP PO SCH (09:39)
[2018-09-17] MEDS: ASPIRIN 81 MG ECTAB PO SCH ×2 (09:39→21:33)
[2018-09-17] MEDS: DOCUSATE SODIUM 100 MG CAP PO SCH ×2 (09:39→21:33)
[2018-09-17] MEDS: CHOLECALCIFEROL 1,000 UNITS TAB PO SCH (09:40)
[2018-09-17] MEDS: VILANTEROL INH SCH (09:41)
[2018-09-17] MEDS: FLUTICASONE INH SCH (09:41)
[2018-09-17] MEDS: INSULIN ASPART 100 UNITS/ML 3 ML PEN SC SCH ×4 (09:42→21:38)
[2018-09-17] MEDS: ATENOLOL 25 MG TABLET PO SCH (10:27)
--- NOTE | 2018-09-17 12:16 | Hospitalist Progress Note ---
Date of Service September 17, 2018 Assessment & Plan (1) Tricompartment osteoarthritis of right knee: s/p right TKA, POD 1 pain is well controlled DVT prophylaxis per ortho PT/OT - participating discharge planning - go home with home therapy patient breathing well off of oxygen, using incentive spirometer encourage oral fluids, mobility, will watch for bowel function (2) DM type 2 (diabetes mellitus, type 2): pharmacy consulted for glycemic management holding Metformin, Victoza and Triseba using [employer] diabetic diet monitor for hypoglycemia, no episodes (3) HTN (hypertension): BP stable on Atenolol (4) Dyslipidemia: Lipitor (5) OAB (overactive bladder): Vesicare (6) Neuropathy: Gabapentin (7) Acute blood loss as cause of postoperative anemia: Hb down slightly to 11.4 likely from intraoperative and post op blood loss BP stable will continue to monitor (8) Chronic kidney disease, stage 3: Cr is 1.5 today, unsure of baseline GFR is withing stage III range encouraged her to drink fluids, repeat BMP in the morning Subjective patient sitting up in chair with occupational therapy doing well, pain controlled, breathing well, no chest pain reviewed labs, Hb down slightly at 11.4 and Cr is 1.5 she is unclear of her baseline Cr, she does have H/o CKD stage III and GFR is 33 so this falls within range eating and drinking well Review of Systems Review of Systems: All systems reviewed & are unremarkable except as noted in HPI & below Constitutional: no fever, no chills, no sweats, no fatigue and no weakness Respiratory: no cough and no dyspnea Cardiovascular: no chest pain, no palpitations, no syncope and no edema Gastrointestinal: no abdominal pain, no nausea, no vomiting, no constipation and no diarrhea/loose stools Musculoskeletal: + joint pain (right knee) Physical Exam Constitutional: WD/WN, vitals as above Eyes: PERRL, conjunctivae normal, anicteric sclerae ENMT: external ear and nose normal, oropharynx normal Neck: trachea midline, no thyromegaly Respiratory: normal respiratory effort, lungs clear to auscultation Cardiovascular: RRR, no murmur, no edema Gastrointestinal (Abdomen): normal bowel sounds, soft, nontender, no hepatosplenomegaly Musculoskeletal: Head/Neck/Chest: normocephalic and head atraumatic Extremities: + limited ROM of extremities (right knee, pain and swelling, xochitl wrap) and strength 5/5 throughout Skin: no rashes, warm and dry Neurologic: patellar DTR's 2+ bilat, sensation intact and PERRL, EOMI, accommodation nl, no face palsy, no dysarthria Psychiatric: A+Ox3, euthymic affect Lymphatic: no cervical or axillary lymphadenopathy Results & Data Vital Signs (Past 12 Hours) Vital Signs Temp Pulse Resp BP Pulse Ox Pulse Ox 09/17/18 11:18 98 09/17/18 11:15 36.7 C 76 18 133/75 96 09/17/18 07:02 36.6 C 74 18 117/72 94 09/17/18 01:59 36.5 C 74 14 117/73 92 Laboratory Results Laboratory Results - last 24 hr 09/16/18 09/16/18 09/16/18 12:26 17:31 20:35 WBC RBC Hgb Hct MCV MCH MCHC RDW Std Deviation RDW Coeff of David Plt Count MPV Sodium Potassium Chloride Carbon Dioxide Anion Gap BUN Creatinine Est Cr Clr Drug Dosing Est GFR ( Amer) Est GFR (Non-Af Amer) BUN/Creatinine Ratio Glucose POC Glucose 161 H 193 H 186 H Calcium Hepatitis C Ab Screen 09/17/18 09/17/18 09/17/18 01:57 05:37 05:37 WBC 13.36 H RBC 3.61 L Hgb 11.4 L Hct 34.3 L MCV 95.0 MCH 31.6 MCHC 33.2 RDW Std Deviation 45.5 RDW Coeff of David 13.1 Plt Count 241 MPV 10.6 H Sodium 139 Potassium 4.7 Chloride 109 H Carbon Dioxide 22 Anion Gap 8.0 BUN 30 H Creatinine 1.54 H Est Cr Clr Drug Dosing 34.4 Est GFR ( Amer) 38.9 Est GFR (Non-Af Amer) 33.6 BUN/Creatinine Ratio 19.6 Glucose 181 H POC Glucose 168 H Calcium 8.4 L Hepatitis C Ab Screen 09/17/18 09/17/18 09/17/18 05:37 08:08 12:03 WBC RBC Hgb Hct MCV MCH MCHC RDW Std Deviation RDW Coeff of David Plt Count MPV Sodium Potassium Chloride Carbon Dioxide Anion Gap BUN Creatinine Est Cr Clr Drug Dosing Est GFR ( Amer) Est GFR (Non-Af Amer) BUN/Creatinine Ratio Glucose POC Glucose 137 H 166 H Calcium Hepatitis C Ab Screen Neg Medications Administered Current Inpatient Medications Acetaminophen (Tylenol) 1,000 mg PO Q8 KEMAL Stop: 10/16/18 13:59 Last Admin: 09/17/18 05:58 Dose: 1,000 mg Documented by: Al Hydrox/Mg Hydrox/Simethicone (Maalox) 15 ml PO Q4H PRN PRN Reason: Heartburn Stop: 10/16/18 13:41 Albuterol (Ventolin Hfa) 2 puffs INH Q6H PRN PRN Reason: Wheezing Stop: 10/16/18 13:41 Albuterol (Ventolin 0.083% 2.5mg/3ml) 2.5 mg INH QIDR PRN PRN Reason: Wheezing Stop: 10/16/18 13:41 Aspirin (Ecotrin Ectab) 81 mg PO BID KEMAL Stop: 10/16/18 20:59 Last Admin: 09/17/18 09:39 Dose: 81 mg Documented by: Atenolol (Tenormin) 25 mg PO QAM KEMAL Stop: 10/17/18 08:59 Last Admin: 09/17/18 10:27 Dose: 25 mg Documented by: Atorvastatin Calcium (Lipitor) 20 mg PO PM KEMAL Stop: 10/16/18 20:59 Last Admin: 09/16/18 20:56 Dose: 20 mg Documented by: Bisacodyl (Dulcolax) 10 mg PA DAILY PRN PRN Reason: Constipation Stop: 10/16/18 13:41 Dextrose (Dextrose 50%) 25 - 50 ml IV UD PRN; Protocol PRN Reason: Hypoglycemia Protocol Stop: 10/16/18 13:59 Docusate Sodium (Colace) 100 mg PO BID KEMAL Stop: 10/16/18 20:59 Last Admin: 09/17/18 09:39 Dose: 100 mg Documented by: Famotidine (Pepcid) 40 mg PO HS KEMAL Stop: 10/16/18 20:59 Last Admin: 09/16/18 20:56 Dose: 40 mg Documented by: Fluticasone/Vilanterol (Breo Ellipta) 1 puffs INH DAILY KEMAL Stop: 10/17/18 08:59 Last Admin: 09/17/18 09:41 Dose: 1 puffs Documented by: Gabapentin (Neurontin) 300 mg PO QAM [facility] Stop: 10/17/18 08:59 Last Admin: 09/17/18 09:39 Dose: 300 mg Documented by: Gabapentin (Neurontin) 600 mg PO QPM [facility] Stop: 10/16/18 20:59 Last Admin: 09/16/18 20:56 Dose: 600 mg Documented by: Glucagon (Glucagen) 1 mg IM UD PRN; Protocol PRN Reason: Hypoglycemia Protocol Stop: 10/16/18 13:59 Glucose (Glucose 40%) 15 - 30 gm PO UD PRN; Protocol PRN Reason: Hypoglycemia Protocol Stop: 10/16/18 13:59 Glucose (Dex4 Glucose) 4 - 8 tabs PO UD PRN; Protocol PRN Reason: Hypoglycemia Protocol Stop: 10/16/18 13:59 Hydromorphone HCl (Dilaudid) 0.5 mg IV Q4H PRN PRN Reason: Pain Stop: 09/30/18 13:41 Insulin Aspart (Novolog Flexpen) 0 units SC ACHS [facility] Stop: 10/16/18 13:59 Last Admin: 09/17/18 09:42 Dose: 10 units Documented by: Magnesium Hydroxide (Milk Of Magnesia) 30 ml PO Q6H PRN PRN Reason: Constipation Stop: 10/16/18 13:41 Miscellaneous (Order Awaiting Action) 1 ea N/A QS [facility] Stop: 10/16/18 15:59 Last Admin: 09/17/18 09:41 Dose: Not Given Documented by: Miscellaneous (Carbohydrates For Hypoglycemia) 15 - 30 gm PO UD PRN PRN Reason: Hypoglycemia Treatment Stop: 10/16/18 13:59 Miscellaneous Information (Consult Glycemic Management Pharmacy) 1 ea N/A UD PRN PRN Reason: Consult Stop: 10/16/18 13:57 Mometasone Furoate (Nasonex) 2 gm ANABELLE DAILY PRN PRN Reason: congestion Stop: 10/17/18 04:23 Multivitamins (Multivitamin Tab) 1 tab PO QAM [facility] Stop: 10/17/18 08:59 Last Admin: 09/17/18 09:39 Dose: 1 tab Documented by: Naloxone HCl (Narcan) 0.1 mg IV Q5M PRN PRN Reason: Oversedation/Resp Depression Stop: 10/16/18 13:41 Ondansetron HCl (Zofran) 4 mg IV Q6H PRN PRN Reason: Nausea And Vomiting Stop: 10/16/18 13:41 Oxycodone HCl (Roxicodone Immediate Rel) 5 - 10 mg PO Q4H PRN PRN Reason: Pain Stop: 09/30/18 13:41 Sennosides (Senokot) 17.2 mg PO [facility] Stop: 10/16/18 20:59 Last Admin: 09/16/18 20:57 Dose: 17.2 mg Documented by: Sodium Chloride ([place] Nasal) 2 sprays NA DAILY PRN PRN Reason: Dryness Stop: 10/17/18 06:01 Vitamin D (Vitamin D3) 2,000 units PO [facility] Stop: 10/17/18 08:59 Last Admin: 09/17/18 09:40 Dose: 2,000 units Documented by: PG Care Time/CCT Total # of Minutes Spent Total Time Spent with Patient: Total time spent is greater than 50% in coordination of care (as documented) at patient's floor/unit and/or counseling patient:
--- NOTE | 2018-09-17 15:14 | Pharmacy Report ---
Glycemic Control Progress Note - Date of Service September 17, 2018 - Scope Glycemic Pharmacist consulted for glycemic control to write orders per [facility] inpatient glycemic control protocol. - Objective Accuchecks BSG(last 24 hours):: 09/16/18 09/16/18 09/17/18 17:31 20:35 01:57 Glucose POC Glucose 193 H 186 H 168 H 09/17/18 09/17/18 09/17/18 05:37 08:08 12:03 Glucose 181 H POC Glucose 137 H 166 H HbA1c:: Hemoglobin A1c 6.6 % (4.5-5.6) H 09/02/18 14:40 - Recent Pertinent Medications The patient is currently receiving: * Basal insulin: Lantus 20 units x 1 then 0-10 SQ HS * Correctional Insulin: Novolog Correction per scale ACHS Goal Range: Low 110 mg/dL - High 140 mg/dL Correction Factor: 15 mg/dL/unit * Prandial insulin: Per carb ratio of 1 unit per 6 grams CHO consumed - Outpatient Anti-Diabetic Meds Victoza 1.6 mg SQ HS Tresiba 12 units HS Metformin 1 gm PO BID - Assessment & Plan ASSESSMENT: * See progress note from 09/16/18 for more background info, in short: * Pt receiving SQ basal bolus insulin regimen for hyperglycemia secondary to baseline DM (outpatient regimen on hold) and POD 1 with steroids on POD 0 (dexamethasone 4 mg topically and dexamethasone 8 mg orally) * Patient is currently receiving an average of 46 units of insulin per day * 30 units of basal insulin * 16 units of prandial/correctional insulin * BSGs ranging 95 - 193 mg/dl over the past 24hrs * Changes needed to insulin regimen: * AM Fasting BSG = 137 mg/dl. This is within goal range for patient based on inpatient targets and co-morbidities. Therefore Basal insulin will be cont inued. Gave additional 15 units this morning (half of what the patient received yesterday) and continue scale for this evening. Removed option to receive 10 units. Expect to transition back to once daily Lantus dosing tomorrow. * Post-prandial BSGs are in range therefore no changes needed to CF/CR. * Total daily dose = ~30-40 units. Basal is very basal heavy right now. Therefore will scale back on Lantus and continue aggressive Novolog dosing. PLAN FOR INPATIENT GLYCEMIC CONTROL: * Lantus 15 units SQ x 1 then 5 units tonight if blood sugar 160 mg/dL or greater * Continuing correction factor of 15 mg/dl/unit * Continuing carb ratio of 1 unit per 6 grams CHO consumed * Continuing goal range of Low 110 mg/dL - High 140 mg/dL RECOMMENDATIONS FOR DISCHARGE: * Patient's HbA1C indicates excellent control. Recommend continuing current regimen. * Please note that the plan above was derived based on current level of insulin resistance and hospital stress. These recommendations are appropriate for inpatient admission only. Plan of care upon discharge will need to be reassessed to avoid potential outpatient hypo/hyperglycemia. Thank you.
[2018-09-17] MEDS ORDERED: VESICARE 10 MG PO SCH (17:00)
[2018-09-17] MEDS: VESICARE 10 MG PO SCH (17:52)
[2018-09-17] MEDS ORDERED: MELATONIN 5 MG PO SCH (21:00)
[2018-09-17] MEDS: SENNA 8.6 MG TAB PO SCH (21:33)
[2018-09-17] MEDS: GABAPENTIN 600 MG TAB PO SCH (21:33)
[2018-09-17] MEDS: FAMOTIDINE 20 MG TAB PO SCH (21:33)
[2018-09-17] MEDS: ATORVASTATIN 20 MG TAB PO SCH (21:35)
[2018-09-18] MEDS: OXYCODONE HCL IR 5 MG TAB (IMMEDIATE RELEASE) PO PRN ×2 (00:30→08:40)
[2018-09-18] MEDS: ACETAMINOPHEN 500 MG TAB PO SCH (05:57)
--- NOTE | 2018-09-18 07:46 | Orthopedic Progress Note ---
Date of Service September 18, 2018 Assessment & Plan (1) Status post total right knee replacement: POD #1 s/p Right TKA pt/ot dvt proph with KRANTHI/SCD/ASA plan for d/c home after PT today Subjective POD #2 s/p Right TKA Review of Systems Constitutional: no fever, no chills and no sweats Respiratory: no cough and no dyspnea Cardiovascular: no chest pain and no dyspnea Gastrointestinal: no abdominal pain, no nausea and no vomiting Physical Exam Physical Exam: Vital Signs Temp Pulse Resp BP Pulse Ox Pulse Ox 09/17/18 23:53 36.8 C 66 14 154/87 H 96 09/17/18 15:10 36.7 C 69 16 120/73 96 09/17/18 11:18 98 09/17/18 11:15 36.7 C 76 18 133/75 96 Intake and Output 09/17/18 09/18/18 09/18/18 22:59 06:59 14:59 Intake Total 120 / 1120 100 / 1120 Output Total 100 / 225 Balance 20 / 895 100 / 895 Intake: Oral 120 / 1120 100 / 1120 Output: Drain Output 100 / 225 Right Knee Hem ovac 100 / 225 Other: # Unmeasured Voi ds 1 Musculoskeletal: Right Leg: NVDI, calf SNT, negative clifford sign. DP palpable, able to wiggle toes/ankle movement without difficulty. dermabond dressing is clean and dry Results & Data Vital Signs (Past 12 Hours) Vital Signs Temp Pulse Resp BP Pulse Ox 09/17/18 23:53 36.8 C 66 14 154/87 H 96 Laboratory Results Laboratory Results WBC 13.36 K/uL (4.8-10.8) H 09/17/18 05:37 RBC 3.61 M/uL (4.2-5.4) L 09/17/18 05:37 Hgb 11.4 g/dL (12.0-16.0) L 09/17/18 05:37 Hct 34.3 % (37-47) L 09/17/18 05:37 MCV 95.0 fL (80-100) 09/17/18 05:37 MCH 31.6 pg (25-34) 09/17/18 05:37 MCHC 33.2 g/dL (32-36) 09/17/18 05:37 RDW Std Deviation 45.5 fL (36.4-46.3) 09/17/18 05:37 RDW Coeff of David 13.1 % (11.5-14.5) 09/17/18 05:37 Plt Count 241 K/uL (130-400) 09/17/18 05:37 MPV 10.6 fL (7.4-10.4) H 09/17/18 05:37 Immature Gran % (Auto) 0.1 % 09/02/18 14:40 Neut % (Auto) 51.8 % 09/02/18 14:40 Lymph % (Auto) 34.6 % 09/02/18 14:40 [place] % (Auto) 6.1 % 09/02/18 14:40 Eos % (Auto) 6.0 % 09/02/18 14:40 Baso % (Auto) 1.4 % 09/02/18 14:40 Immature Gran # (Auto) 0.01 K/uL (0.00-0.02) 09/02/18 14:40 Neut # (Auto) 4.35 K/uL (1.4-6.5) 09/02/18 14:40 Lymph # (Auto) 2.91 K/uL (1.2-3.4) 09/02/18 14:40 [place] # (Auto) 0.51 K/uL (0.11-0.59) 09/02/18 14:40 Eos # (Auto) 0.50 K/uL (0-0.5) 09/02/18 14:40 Baso # (Auto) 0.12 K/uL (0-0.2) 09/02/18 14:40 PT 10.9 Seconds (9.0-12.0) 09/02/18 14:40 INR 1.1 (0.9-1.1) 09/02/18 14:40 APTT 25.6 Seconds (21.0-31.0) 09/02/18 14:40 PTT Ratio 0.9 09/02/18 14:40 Sodium 139 mmol/L (136-145) 09/17/18 05:37 Potassium 4.7 mmol/L (3.5-5.1) 09/17/18 05:37 Chloride 109 mmol/L (98-107) H 09/17/18 05:37 Carbon Dioxide 22 mmol/L (21-32) 09/17/18 05:37 Anion Gap 8.0 (3-11) 09/17/18 05:37 BUN 30 mg/dl (7-18) H 09/17/18 05:37 Creatinine 1.54 mg/dl (0.6-1.2) H 09/17/18 05:37 Est Cr Clr Drug Dosing 34.4 ml/min 09/17/18 05:37 Est GFR ( Amer) 38.9 09/17/18 05:37 Est GFR (Non-Af Amer) 33.6 09/17/18 05:37 BUN/Creatinine Ratio 19.6 (10-20) 09/17/18 05:37 Glucose 181 mg/dl (70-99) H 09/17/18 05:37 POC Glucose 110 (70-99) H 09/17/18 20:30 Estimat Average Glucose 143 mg/dl 09/02/18 14:40 Hemoglobin A1c 6.6 % (4.5-5.6) H 09/02/18 14:40 Calcium 8.4 mg/dl (8.5-10.1) L 09/17/18 05:37 Albumin 3.6 gm/dl (3.4-5.0) 09/02/18 14:40 Urine Color Yellow 09/02/18 14:40 Urine Appearance Cloudy (Clear) A 09/02/18 14:40 Urine pH 5.0 (4.5-7.5) 09/02/18 14:40 Ur Specific [place] 1.024 (1.000-1.030) 09/02/18 14:40 Urine Protein Negative (Negative) 09/02/18 14:40 Urine Glucose (UA) Negative (Negative) 09/02/18 14:40 Urine Ketones Negative (Negative) 09/02/18 14:40 Urine Blood Negative (Negative) 09/02/18 14:40 Urine Nitrite Negative (Negative) 09/02/18 14:40 Urine Bilirubin Negative (Negative) 09/02/18 14:40 Urine Urobilinogen Negative (Negative) 09/02/18 14:40 Ur Leukocyte Esterase Trace (Negative) H 09/02/18 14:40 Urine WBC (Auto) 1-5 /hpf (0-5) 07/24/19 14:40 Urine RBC (Auto) 0-4 /hpf (0-4) 09/02/18 14:40 U Hyaline Cast (Auto) 1-5 /lpf (0-5) 09/02/18 14:40 U Epithel Cells (Auto) >30 /lpf (0-5) H 09/02/18 14:40 Urine Bacteria (Auto) 1+ (Negative) H 09/02/18 14:40 Hepatitis C Ab Screen Neg (Neg) 09/17/18 05:37 Blood Type O Positive 09/02/18 14:40 Antibody Screen NEGATIVE 09/02/18 14:40
[2018-09-18 07:56] LABS: Hematocrit (blood only) 33.9 % (37-47); Hemoglobin 11.3 g/dL (12.0-16.0); Mean Corpuscular Hgb Conc 33.3 g/dL (32-36); Mean Corpuscular Volume 95.2 fL (80-100); Mean Platelet Volume 10.4 fL (7.4-10.4); Platelet Count 225 K/uL (130-400); RDW Coefficient of Variation 13.4 % (11.5-14.5); RDW Standard Deviation 46.8 fL (36.4-46.3); Red Blood Count 3.56 M/uL (4.2-5.4); White Blood Count 9.65 K/uL (4.8-10.8)
[2018-09-18 08:27] LABS: BUN Creatinine Ratio 21.3 (10-20); Calcium 8.9 mg/dl (8.5-10.1); Creatinine Clr Calc Pharmacy 48.1 ml/min; Est GFR (African American) 58.5; Est GFR (Non-African American) 50.5; Potassium 4.2 mmol/L (3.5-5.1)
[2018-09-18] MEDS: MULTIVITAMIN TAB PO SCH (08:37)
[2018-09-18] MEDS: GABAPENTIN 300 MG CAP PO SCH (08:37)
[2018-09-18] MEDS: CHOLECALCIFEROL 1,000 UNITS TAB PO SCH (08:38)
[2018-09-18] MEDS: VILANTEROL INH SCH (08:38)
[2018-09-18] MEDS: ATENOLOL 25 MG TABLET PO SCH (08:38)
[2018-09-18] MEDS: DOCUSATE SODIUM 100 MG CAP PO SCH (08:38)
[2018-09-18] MEDS: FLUTICASONE INH SCH (08:38)
[2018-09-18] MEDS: ASPIRIN 81 MG ECTAB PO SCH (08:39)
[2018-09-18] MEDS: VESICARE 10 MG PO SCH (08:39)
[2018-09-18] MEDS: INSULIN ASPART 100 UNITS/ML 3 ML PEN SC SCH (08:43)
--- NOTE | 2018-09-18 10:39 | Pharmacy Report ---
Glycemic Control Progress Note - Date of Service September 18, 2018 - Scope Glycemic Pharmacist consulted for glycemic control to write orders per [facility] inpatient glycemic control protocol. - Objective Accuchecks BSG(last 24 hours):: 09/17/18 09/17/18 09/17/18 12:03 17:12 20:30 Glucose POC Glucose 166 H 137 H 110 H 09/18/18 09/18/18 07:44 08:23 Glucose 96 POC Glucose 105 H HbA1c:: Hemoglobin A1c 6.6 % (4.5-5.6) H 09/02/18 14:40 - Recent Pertinent Medications The patient is currently receiving: * Basal insulin: Lantus 15 units every 24 hours plus 5 units if blood sugar over 160 mg/dL at bedtime * Correctional Insulin: Novolog Correction per scale ACHS Goal Range: Low 110 mg/dL - High 140 mg/dL Correction Factor: 15 mg/dL/unit * Prandial insulin: Per carb ratio of 1 unit per 6 grams CHO consumed - Outpatient Anti-Diabetic Meds Victoza 1.6 mg HS Tresiba 12 units HS metformin 1 mg daily - Assessment & Plan ASSESSMENT: * See progress note from 09/16/18 for more background info, in short: * Pt receiving SQ basal bolus insulin regimen for hyperglycemia secondary to baseline DM (outpatient regimen on hold) and POD 2 for knee surgery. Planned discharge today. * Patient is currently receiving an average of 55 units of insulin per day * 15 units of basal insulin * 40 units of prandial/correctional insulin * BSGs ranging 110 - 166 mg/dl over the past 24hrs * Changes needed to insulin regimen: * AM Fasting BSG = 105 mg/dl. This is in goal range for patient based on inpatient targets and co-morbidities. Will resume home Lantus dosing with 10 units nightly. * Post-prandial BSGs are trending downwards as effects from steroids are diminishing. Loosen to weight-based stress of 2 at lunch. Resume metformin at lunch- kidney function normalized. * Total daily dose = ~40 units. * Additional notes / comments: resume metformin at lunch PLAN FOR INPATIENT GLYCEMIC CONTROL: * Starting Lantus 10 units SQ HS * LOOSENING correction factor to 25 mg/dl/unit * LOOSENING carb ratio to 1 unit per 8 grams CHO consumed * Continuing goal range of Low 110 mg/dL - High 140 mg/dL RECOMMENDATIONS FOR DISCHARGE: * Patient's blood sugars are well controlled. Recommend continuing regimen. * In terms of Tresiba, patient okay to take home dose tonight at dinner or at bedtime - whichever is easiest for her. * Please note that the plan above was derived based on current level of insulin resistance and hospital stress. These recommendations are appropriate for inpatient admission only. Plan of care upon discharge will need to be reassessed to avoid potential outpatient hypo/hyperglycemia. Thank you.
--- NOTE | 2018-09-18 11:01 | Hospitalist Progress Note ---
Date of Service September 18, 2018 Assessment & Plan (1) Tricompartment osteoarthritis of right knee: s/p right TKA, POD 2 pain is well controlled DVT prophylaxis per ortho PT/OT - participating discharge planning - go home with home therapy today patient breathing well off of oxygen, using incentive spirometer patient is medically stable for discharge today, will sign off at this time (2) DM type 2 (diabetes mellitus, type 2): pharmacy consulted for glycemic management holding Metformin, Victoza and Triseba using Vyteris diabetic diet monitor for hypoglycemia, no episodes resume home medications on discharge (3) HTN (hypertension): BP stable on Atenolol (4) Dyslipidemia: Lipitor (5) OAB (overactive bladder): Vesicare (6) Neuropathy: Gabapentin (7) Acute blood loss as cause of postoperative anemia: Hb stabel today at 11.3 drain pulled BP stable (8) Chronic kidney disease, stage 3: Cr is 1.5 yesterday, 1.2 today which is her baseline range she follows with nephrology in [facility] Subjective patient feeling well, pain well controlled, eating well no chest pain, no dyspnea reviewed labs, Cr is stable at 1.2 and electrolytes stable Hb is 11.3 today, stable, WBC is normal orthopedic surgery plans to d/c today, medically stable for this Review of Systems 2 Review of Systems: All systems reviewed & are unremarkable except as noted in HPI & below Respiratory: no cough and no dyspnea Cardiovascular: no chest pain and no edema Gastrointestinal: no abdominal pain, no nausea, no vomiting, no constipation and no diarrhea/loose stools Musculoskeletal: + joint pain (right knee) Physical Exam Constitutional: WD/WN, vitals as above Eyes: PERRL, conjunctivae normal, anicteric sclerae ENMT: external ear and nose normal, oropharynx normal Neck: trachea midline, no thyromegaly Respiratory: normal respiratory effort, lungs clear to auscultation Cardiovascular: RRR, no murmur, no edema Gastrointestinal (Abdomen): normal bowel sounds, soft, nontender, no hepatosplenomegaly Musculoskeletal: Head/Neck/Chest: normocephalic and head atraumatic Extremities: + limited ROM of extremities (right knee, pain and swelling, xochitl wrap) and strength 5/5 throughout Skin: no rashes, warm and dry Neurologic: patellar DTR's 2+ bilat, sensation intact and PERRL, EOMI, accommodation nl, no face palsy, no dysarthria Psychiatric: A+Ox3, euthymic affect Lymphatic: no cervical or axillary lymphadenopathy Results & Data Vital Signs (Past 12 Hours) Vital Signs Temp Pulse Pulse Resp BP Pulse Ox 09/18/18 10:49 36.6 C 75 66 16 137/82 93 09/18/18 07:54 36.6 C 66 16 137/82 93 09/17/18 23:53 36.8 C 66 14 154/87 H 96 Laboratory Results Laboratory Results - last 24 hr 09/17/18 09/17/18 09/17/18 12:03 17:12 20:30 WBC RBC Hgb Hct MCV MCH MCHC RDW Std Deviation RDW Coeff of David Plt Count MPV Sodium Potassium Chloride Carbon Dioxide Anion Gap BUN Creatinine Est Cr Clr Drug Dosing Est GFR ( Amer) Est GFR (Non-Af Amer) BUN/Creatinine Ratio Glucose POC Glucose 166 H 137 H 110 H Calcium 09/18/18 09/18/18 09/18/18 07:44 07:44 08:23 WBC 9.65 RBC 3.56 L Hgb 11.3 L Hct 33.9 L MCV 95.2 MCH 31.7 MCHC 33.3 RDW Std Deviation 46.8 H RDW Coeff of David 13.4 Plt Count 225 MPV 10.4 Sodium 142 Potassium 4.2 Chloride 112 H Carbon Dioxide 26 Anion Gap 4.0 BUN 23 H Creatinine 1.10 D Est Cr Clr Drug Dosing 48.1 Est GFR ( Amer) 58.5 Est GFR (Non-Af Amer) 50.5 BUN/Creatinine Ratio 21.3 H Glucose 96 POC Glucose 105 H Calcium 8.9 Medications Administered Current Inpatient Medications Acetaminophen (Tylenol) 1,000 mg PO Q8 KEMAL Stop: 10/16/18 13:59 Last Admin: 09/18/18 05:57 Dose: 1,000 mg Documented by: Al Hydrox/Mg Hydrox/Simethicone (Maalox) 15 ml PO Q4H PRN PRN Reason: Heartburn Stop: 10/16/18 13:41 Albuterol (Ventolin Hfa) 2 puffs INH Q6H PRN PRN Reason: Wheezing Stop: 10/16/18 13:41 Albuterol (Ventolin 0.083% 2.5mg/3ml) 2.5 mg INH QIDR PRN PRN Reason: Wheezing Stop: 10/16/18 13:41 Aspirin (Ecotrin Ectab) 81 mg PO BID KEMAL Stop: 10/16/18 20:59 Last Admin: 09/18/18 08:39 Dose: 81 mg Documented by: Atenolol (Tenormin) 25 mg PO QAM KEMAL Stop: 10/17/18 08:59 Last Admin: 09/18/18 08:38 Dose: 25 mg Documented by: Atorvastatin Calcium (Lipitor) 20 mg PO PM KEMAL Stop: 10/16/18 20:59 Last Admin: 09/17/18 21:35 Dose: 20 mg Documented by: Bisacodyl (Dulcolax) 10 mg ND DAILY PRN PRN Reason: Constipation Stop: 10/16/18 13:41 Dextrose (Dextrose 50%) 25 - 50 ml IV UD PRN; Protocol PRN Reason: Hypoglycemia Protocol Stop: 10/16/18 13:59 Docusate Sodium (Colace) 100 mg PO BID KEMAL Stop: 10/16/18 20:59 Last Admin: 09/18/18 08:38 Dose: 100 mg Documented by: Famotidine (Pepcid) 40 mg PO HS KEMAL Stop: 10/16/18 20:59 Last Admin: 09/17/18 21:33 Dose: 40 mg Documented by: Fluticasone/Vilanterol (Breo Ellipta) 1 puffs INH DAILY KEMAL Stop: 10/17/18 08:59 Last Admin: 09/18/18 08:38 Dose: 1 puffs Documented by: Gabapentin (Neurontin) 300 mg PO QAM KEMAL Stop: 10/17/18 08:59 Last Admin: 09/18/18 08:37 Dose: 300 mg Documented by: Gabapentin (Neurontin) 600 mg PO QPM KEMAL Stop: 10/16/18 20:59 Last Admin: 09/17/18 21:33 Dose: 600 mg Documented by: Glucagon (Glucagen) 1 mg IM UD PRN; Protocol PRN Reason: Hypoglycemia Protocol Stop: 10/16/18 13:59 Glucose (Glucose 40%) 15 - 30 gm PO UD PRN; Protocol PRN Reason: Hypoglycemia Protocol Stop: 10/16/18 13:59 Glucose (Dex4 Glucose) 4 - 8 tabs PO UD PRN; Protocol PRN Reason: Hypoglycemia Protocol Stop: 10/16/18 13:59 Hydromorphone HCl (Dilaudid) 0.5 mg IV Q4H PRN PRN Reason: Pain Stop: 09/30/18 13:41 Insulin Aspart (Novolog Flexpen) 0 units SC ACHS [facility] Stop: 10/16/18 13:59 Last Admin: 09/18/18 08:43 Dose: 1 units Documented by: Insulin Glargine (Lantus Solostar Pen) 10 units SC [facility] Stop: 10/18/18 16:59 Magnesium Hydroxide (Milk Of Magnesia) 30 ml PO Q6H PRN PRN Reason: Constipation Stop: 10/16/18 13:41 Metformin HCl (Glucophage) 1,000 mg PO DAILY [facility] Stop: 10/18/18 11:59 Miscellaneous (Carbohydrates For Hypoglycemia) 15 - 30 gm PO UD PRN PRN Reason: Hypoglycemia Treatment Stop: 10/16/18 13:59 Miscellaneous Information (Consult Glycemic Management Pharmacy) 1 ea N/A UD PRN PRN Reason: Consult Stop: 10/16/18 13:57 Mometasone Furoate (Nasonex) 2 gm ANABELLE DAILY PRN PRN Reason: congestion Stop: 10/17/18 04:23 Multivitamins (Multivitamin Tab) 1 tab PO QAM [facility] Stop: 10/17/18 08:59 Last Admin: 09/18/18 08:37 Dose: 1 tab Documented by: Naloxone HCl (Narcan) 0.1 mg IV Q5M PRN PRN Reason: Oversedation/Resp Depression Stop: 10/16/18 13:41 Vesicare 10 Mg 1 ea PO DAILY [facility] Stop: 10/17/18 16:59 Last Admin: 09/18/18 08:39 Dose: 10 mg Documented by: Melatonin 5 Mg: Non- Formulary Patient's Own Med 1 ea PO HS [facility] Stop: 10/17/18 20:59 Last Admin: 09/17/18 21:34 Dose: 1 tab Documented by: Ondansetron HCl (Zofran) 4 mg IV Q6H PRN PRN Reason: Nausea And Vomiting Stop: 10/16/18 13:41 Oxycodone HCl (Roxicodone Immediate Rel) 5 - 10 mg PO Q4H PRN PRN Reason: Pain Stop: 09/30/18 13:41 Last Admin: 09/18/18 08:40 Dose: 5 mg Documented by: Sennosides (Senokot) 17.2 mg PO HS [facility] Stop: 10/16/18 20:59 Last Admin: 09/17/18 21:33 Dose: 17.2 mg Documented by: Sodium Chloride ([place] Nasal) 2 sprays NA DAILY PRN PRN Reason: Dryness Stop: 10/17/18 06:01 Vitamin D (Vitamin D3) 2,000 units [facility] Stop: 10/17/18 08:59 Last Admin: 09/18/18 08:38 Dose: 2,000 units Documented by: PG Care Time/CCT Total # of Minutes Spent Total Time Spent with Patient: Total time spent is greater than 50% in coordination of care (as documented) at patient's floor/unit and/or counseling patient:
[2018-09-18] MEDS ORDERED: METFORMIN HCL 500 MG TAB PO SCH (12:00)
[2018-09-18] MEDS ORDERED: INSULIN GLARGINE SOLOSTAR 100 UNITS/ML 3 ML PEN SC SCH (17:00)
--- NOTE | 2018-09-21 22:29 | Discharge Summary ---
DISCHARGE DIAGNOSIS: Degenerative joint disease, right knee. SECONDARY DIAGNOSES: Asthma, diabetes mellitus type 2, gastroesophageal reflux disease, hiatal hernia, renal calculi, hyperlipidemia, hypertension, morbid obesity, seasonal allergies, urinary incontinence. CONSULT: Dr. Jett Hope COMPLICATIONS: None. PROCEDURES: Right total knee arthroplasty performed by Dr. Inman on 09/16/2018. BRIEF HISTORY: As dictated in the history and physical. HOSPITAL SUMMARY: The patient was admitted on the above-noted date and had the above-noted surgery performed, which she tolerated well. On first postoperative day, she was currently sitting up at the chair at the bedside and states she did not sleep very well. She did have some pain just above the patella, but otherwise her pain was controlled. Denied any shortness of breath or chest pain. Did have some mild lightheadedness when walking into the bathroom, but quickly resolved. She had no other complaints and concerns at that time. Dressing is clean, dry and intact. Calves were soft, nontender. She is moving her toes and she does have a noted weakness of dorsiflexion of the foot. Plantarflexion is strong. Hemovac drainage was 150 mL from the previous shift. Vital signs were stable. She was afebrile. Hemoglobin was 11.4. The patient was started on PT and OT protocols, DVT prophylaxis and continued on current pain regimen. Weakness of her foot was likely due to intraoperative injection and plans were to watch for now. Dr. Hope had been consulted to follow her medically during her stay of which she did. She continued to remain medically stable. By her second postoperative day, she had no complaints and was comfortable. Neurovascular was intact. Calves were soft, nontender. Toes were mobile and Dermabond dressing was clean and dry. She was progressing with physical therapy and remaining medically stable. It was felt that she could be discharged to home with plans to follow up with nephrology in [facility] per Dr. Hope' recommendations for her chronic kidney disease. For further review, please see chart. LABORATORY AND X-RAY DATA: As per chart. DISCHARGE INSTRUCTIONS: The patient was discharged home in satisfactory condition on 09/18/2016. DIET: Diabetic. ACTIVITY: Weightbearing as tolerated in right lower extremity with walker. Follow TK instruction sheets and special care instructions as noted. Follow up with Dr. Inman in 2 weeks. The patient to call for appointment if one has not been made for you. Follow up with nephrology in [facility] as per Dr. Hope' recommendations. MEDICATIONS: Acetaminophen 1000 mg p.o. q. 8 hours, aspirin 81 mg p.o. b.i.d., cefadroxil 500 mg p.o. b.i.d., Colace 100 mg p.o. b.i.d., oxycodone 5-10 mg p.o. q. 6 hours p.r.n. Resume home meds as listed and stop taking previous acetaminophen, aspirin dosages and omega-3.
== END 2018-09-18 11:39 | disposition home or self-care (01) | DRG 470 ==
LOC: ASU 08:05 → 3E 12:28 → SUPCPDRO 12:28